=== PATIENT | male | born 1955 | race Caucasian/White ===

== ENCOUNTER 2016-12-26 19:30 | Emergency (ER) | payer BC ==
--- NOTE | 2016-12-26 20:04 | RADIOLOGY REPORT ---
HISTORY: Twisting injury with pain. COMPARISON: None available. FINDINGS: 3 views of the lumbar spine obtained. There is no evidence of acute bony fracture. The sacrum is tacked and the sacroiliac joints are congr uent. There is evidence of mild degenerative disc disease and spondylosis without the lumbar spine mo st pronounced at the L5-S1 level. IMPRESSION: 1. No fracture. Final Electronic Signature: This report was electronically signed by Antonio Carroll MD on 12/26/2016 8:02 PM. gretel /
--- NOTE | 2016-12-26 20:24 | ER PHYSICIAN DOCUMENTATION ---
Physician Documentation [facility] Name:Michael Shetty Age:60 yrs Sex:Male :1955 Arrival Date:12/26/2016 Time:19:30 Bed1 Private MD: Jones Llanos Disposition: 12/26/16 20:13 Discharged to Home/Self Care. Impression: Acute Low Back Pain. - Condition is Fair. - Discharge Instructions: BACK PAIN (Acute or Chronic), BACK CARE TIPS, BACK EXERCISES, Lumbar. - Prescriptions for Hydrocodone- Acetaminophen 5-325 mg Oral Tablet - take 1 tablet by ORAL route every 6 hours As needed; 20 tablet. - Medical Reconciliation form form. - Follow up: Private Physician; When: 1 week; Reason: Recheck today's complaints. - Problem is new. - Symptoms are unchanged. HPI: 12/26 19:36 This 60 yrs old Male presents to ER via Walk In with complaints of Back Pain. sc 19:36 The patient presents with pain and an injury. The symptoms are located in the low back. sc Onset: The symptoms/episode began/occurred today. The pain does not radiate. Associated signs and symptoms: The patient has no apparent associated signs or symptoms. The problem was sustained outdoors, during a fall, from horse when saddle slid over. Severity of symptoms: At their worst the symptoms were moderate. Historical: - Allergies: Amoxicillin; Tetanus Toxoid Adsorbed; - Home Meds: 1. Lisinopril Oral 2. Tricor Oral - PMHx: Hypertension; HIGH CHOLESTEROL; - PSHx: None; - Tetanus: allergy. - Ebola Screening: : Patient denies exposure to infectious person. Patient denies travel to an Ebola-affected area in the 21 days before illness onset. . - Immunization history: Flu Vaccine None. - Social history: Smoking status: Patient states was never smoker of tobacco. Patient uses alcohol only on a social basis. - Code Status:: Full code. ROS: 19:36 Constitutional: Negative for fever, chills, and weight loss. sc Eyes: Negative for injury, pain, redness, and discharge. ENT: Negative for injury, pain, and discharge. Neck: Negative for injury, pain, and swelling. Cardiovascular: Negative for chest pain, palpitations, and edema. Skin: Negative for injury, rash, and discoloration. 19:36 Neuro: Negative for headache, weakness, numbness, tingling, and seizure. sc 19:36 Back: Positive for injury or acute deformity, pain with movement. Exam: Constitutional: This is a well developed, well nourished patient who is awake, alert, and in no acute distress. Head/Face: Normocephalic, atraumatic. Neck: Trachea midline, no thyromegaly or masses palpated, and no cervical lymphadenopathy. Supple, full range of motion without nuchal rigidity, or vertebral point tenderness. No meningismus. Chest/axilla: Normal chest wall appearance and motion. Nontender with no deformity. No lesions are appreciated. 19:37 Skin: Warm, dry with normal turgor. Normal color with no rashes, no lesions, and no sc evidence of cellulitis. 19:37 Back: pain, that is moderate, ROM is painful, normal spinal alignment noted, CVA tenderness, is absent, vertebral tenderness, is not appreciated, muscle spasm, is appreciated in the left low back, Straight leg raises: of both lower extremities does not illicit pain. 19:37 Neuro: Sensation: is normal, Gait: is steady, Deep tendon reflexes are 2+ (normal) in the right patellar, right Achilles, left patellar and left Achilles. Vital Signs: 19:35 BP 152 / 91; Pulse 59; Resp 15; Temp 98.7; Pulse Ox 94% on R/A; Pain 4/10; lb MDM: 19:32 Patient medically screened. sc 19:37 Differential diagnosis: Fracture ruptured disc. Data reviewed: vital signs, nurses sc notes, radiologic studies, plain films. Data reviewed: and as a result, I will continue to observe the patient. Counseling: I had a detailed discussion with the patient and/or guardian regarding: the historical points, exam findings, and any diagnostic results supporting the discharge/admit diagnosis, radiology results, the need for outpatient follow up, to return to the emergency department if symptoms worsen or persist or if there are any questions or concerns that arise at home. 12/26 20:05 Order name: [id number]; Complete Time: 20:12 EDMS 12/26 20:12 Interpretation: Normal. sc Dispensed Medications: 20:15 Drug: HYDROcodone-acetaminophen (5mg/325 mg) 1-2 tabs 1 tabs; Route: PO; lb 20:20 Follow up: Response: Pharmacy closed - take home med pack lb Signatures: Jones Reyes MD MD sc Bollock, Lynda lb
--- NOTE | 2016-12-26 20:24 | ER NURSING DOCUMENTATION ---
Nurse's Notes [facility] Name:Michael Shetty Age:60 yrs Sex:Male :1955 Arrival Date:12/26/2016 Time:19:30 Bed1 Private MD: Diagnosis:Acute Low Back Pain Presentation: 12/26 19:32 Presenting complaint: Patient states: fell approx 4 ft off horse, c.o low back pain. lb Transition of care: Camp. Notified ED Physician of Dr. Reyes notified. Care prior to arrival: Medication(s) given: Ibuprofen. 19:32 Acuity: [place]IR[place] 4 lb 19:32 Method Of Arrival: Walk In lb Triage Assessment: 19:34 General: Appears uncomfortable, Behavior is appropriate for age, pleasant. Pain: lb Complains of pain in lumbar area, left low back and right low back Pain does not radiate. Pain currently is 4 out of 10 on a pain scale. EENT: No deficits noted. Neuro: No deficits noted. Cardiovascular: No deficits noted. Respiratory: No deficits noted. GI: No deficits noted. Musculoskeletal: Circulation, motion, and sensation intact Capillary refill < 3 seconds Range of motion intact in all extremities. Reports pain in lumbar area, left low back and right low back. Injury Description: Bruise. Historical: - Allergies: Amoxicillin; Tetanus Toxoid Adsorbed; - Home Meds: 1. Lisinopril Oral 2. Tricor Oral - PMHx: Hypertension; HIGH CHOLESTEROL; - PSHx: None; - Tetanus: allergy. - Ebola Screening: : Patient denies exposure to infectious person. Patient denies travel to an Ebola-affected area in the 21 days before illness onset. . - Immunization history: Flu Vaccine None. - Social history: Smoking status: Patient states was never smoker of tobacco. Patient uses alcohol only on a social basis. - Code Status:: Full code. Screenin:36 Infectious Disease Risk None. Abuse screen: Denies threats or abuse. Denies injuries lb from another. Nutritional screening: No deficits noted. Assessment: 19:36 See Triage Assessment done by same RN. General: Appears uncomfortable, Behavior is lb appropriate for age, pleasant. Pain: Complains of pain in left low back and right low back Pain does not radiate. Pain currently is 4 out of 10 on a pain scale. Neuro: No deficits noted. EENT: No deficits noted. Cardiovascular: No deficits noted. Respiratory: No deficits noted. Vital Signs: 19:35 BP 152 / 91; Pulse 59; Resp 15; Temp 98.7; Pulse Ox 94% on R/A; Pain 4/10; lb ED Course: 19:32 Patient arrived in ED. jt 19:32 Carole Pérez is Primary Nurse. lb 19:32 Jones Reyes MD is Attending Physician. ma 19:32 Triage completed. lb 19:37 Valuables Remains with patient Patient has correct armband on for positive lb identification. Bed in low position. Call light in reach. 19:40 Patient moved to radiology. mr 19:55 Patient moved back from radiology. mr Administered Medications: 20:15 Drug: HYDROcodone-acetaminophen (5mg/325 mg) 1-2 tabs 1 tabs; Route: PO; lb 20:20 Follow up: Response: Pharmacy closed - take home med pack lb Outcome: 20:13 Discharge ordered by . ma 20:21 Discharged to [place] lb 20:21 Condition: good 20:21 Discharge Assessment: Patient awake, alert and oriented x 3. No cognitive and/or functional deficits noted. Patient verbalized understanding of disposition instructions. 20:21 Instructed on discharge instructions, follow up and referral plans. no drinking with medication, no driving heavy equipment. 20:23 Patient left the ED. lb 12/27 10:34 Discharge F/U Call: Unable to reach: no answer st Signatures: Lorraine Dumont, RN RN Jones Almaraz MD MD ma Jada Mercado Lynda Martinez Mario mr
== END 2016-12-26 20:24 | disposition home or self-care (01) ==
LOC: ER 19:30
DX: M54.5 Low back pain (principal); M62.830 Muscle spasm of back; V80.010A Animal-rider injured by fall from or being thrown from horse in noncollision accident, initial encounter; Y92.838 Other recreation area as the place of occurrence of the external cause; Y93.52 Activity, horseback riding; I10 Essential (primary) hypertension; Z79.899 Other long term (current) drug therapy
CPT/HCPCS: 72100; 99283